=== PATIENT | female | born 1965 | race African-American/Black ===

== ENCOUNTER → 2017-09-24 | Outpatient (CLI) | payer BC ==
--- NOTE | 2017-09-28 09:15 | MM ---
Reason for exam: screening (asymptomatic). Last mammogram was performed 1 year and 3 months ago. History: Took hormonal contraceptives for 8 years beginning at age 17. Physical Findings: A clinical breast exam by your physician is recommended on an annual basis and results should be correlated with mammographic findings. MG Screening Mammo w CAD Bilateral CC and MLO view(s) were taken. Prior study comparison: June 09, 2016, bilateral MG screening mammo w CAD. October 30, 2013, bilateral digital screening mammo w/CAD. The breast tissue is heterogeneously dense. This may lower the sensitivity of mammography. No significant changes when compared with prior studies. ASSESSMENT: Negative, BI-RAD 1 RECOMMENDATION: Routine screening mammogram of both breasts in 1 year.
== END ==
LOC: RADMAMWWP 09:13
PROVIDERS: ATTEND Family Medicine
DX: Z12.31 Encounter for screening mammogram for malignant neoplasm of breast (principal)
CPT/HCPCS: 77067

== ENCOUNTER → 2018-08-11 | Outpatient (CLI) | payer BC ==
[2018-08-11 13:43] LABS: Basophils % (A) 0 %; Eosinophils # (A) 0.1 k/uL (0-0.7); Eosinophils % (A) 2 %; HCT 37.5 % (34.0-46.0); HGB 11.9 gm/dL (11.4-16.0); Lymphocytes # (A) 1.7 k/uL (1.0-4.8); Lymphocytes % (A) 19 %; MCH 28.3 pg (25.0-35.0); MCHC 31.7 g/dL (31.0-37.0); MCV 89.3 fL (80.0-100.0); Mean Platelet Volume 7.3; Monocytes # (A) 0.3 k/uL (0-1.0); Monocytes % (A) 3 %; Neutrophils # (A) 7.1 k/uL (1.3-7.7); Neutrophils % (A) 75 %; Platelet Count 283 k/uL (150-450); RBC 4.21 m/uL (3.80-5.40); RDW 14.3 % (11.5-15.5); WBC 9.4 k/uL (3.8-10.6)
== END | disposition home or self-care (01) ==
LOC: LABPAT 13:04
PROVIDERS: ATTEND Obstetrics & Gynecology
DX: Z01.812 Encounter for preprocedural laboratory examination (principal); N92.0 Excessive and frequent menstruation with regular cycle
CPT/HCPCS: 36415; 85025

== ENCOUNTER 2018-08-23 08:15 | Day surgery (SDC) | payer BC ==
[2018-08-22 11:03] VITALS: BMI 34.3
--- NOTE | 2018-08-22 15:11 | HP ---
HISTORY AND PHYSICAL This is a 53-year-old female who presents with long, heavy menses that are lasting 9 days monthly. The menses are regular, she has had previously a tubal ligation. Sonogram reveals multiple uterine fibroids, largest 4.4 cm. After thorough consultation, patient is electing to proceed with endometrial ablation. We have discussed vaginal hysterectomy as an option as well. PAST MEDICAL HISTORY: Significant for asthma, hypertension, hypothyroidism as well as a history of abnormal Pap smears. PAST SURGICAL HISTORY: Tubal ligation in the past. CURRENT MEDICATIONS: 1. Ibuprofen 800 mg as needed. 2. Levothyroxine 100 mcg daily. 3. Lisinopril 10 mg orally daily. ALLERGIES: Include LODINE and PENICILLIN, reaction unclear per patient's history. FAMILY HISTORY: Significant for hypertension, diabetes, and congestive heart failure. REPRODUCTIVE HISTORY: Significant for vaginal delivery in 1991. 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 PHYSICAL EXAM: This is a pleasant white female who is 5 foot 6 inches, 212 pounds, BMI 34, blood pressure 120/82. HEENT exam reveals good dentition, no thyromegaly, no cervical lymphadenopathy. Breasts are bilaterally symmetric to inspection with no skin dimpling, nipple discharge, axillary adenopathy or discernible lesions or masses. Abdomen is somewhat obese, no organoplenomegaly, no tenderness, active bowel sounds. The chest is clear to auscultation in all conner anteriorly and posteriorly. The cardiac exam reveals a regular rate and rhythm with no murmur, click, or rub. Extremities reveal no edema, good peripheral pulses, equal reflexes bilaterally. On pelvic exam, cervix is multiparous, uterus is nontender, 12 week size and irregular with small fibroids. Adnexa are negative bilaterally without tenderness or enlargement. Rectal exam reveals good sphincter tone, no hemorrhoids or defects. IMPRESSION: Small fibroid uterus, menorrhagia, previous tubal ligation. With impending menopause, patient is electing to proceed with hysteroscopy and NovaSure endometrial ablation as opposed to vaginal hysterectomy, although both options have been reviewed in detail. PLAN: We will therefore proceed with hysteroscopy, endometrial ablation at [facility] on 08/23/2018. The procedural pamphlet has been given to the patient and she has reviewed it thoroughly. I discussed with her the risk of anesthesia, the risk of perforation or damage to the bladder, bowel, ureters, blood vessels, the risk of the dysmenorrhea or issues postoperatively. All questions answered. The patient understands that this may fail secondary to the presence of small fibroids, at which time a vaginal hysterectomy would be her last option. Second opinion offered and declined. MMODL / IJN: [id number] /
[~2018-08-23 08:15] MED LIST: DEXAMETHASONE SOD PHOSPHATE 10 MG/ML 1 ML VIAL IV ONE; HYDROmorphone 0.5 MG/0.5 ML SYRINGE IVP PRN; LACTATED RINGERS 1,000 ML IV SCH; LIDOCAINE 1% 20 ML VIAL (10MG/ML) FOR IV START INTRADERMA PRN; MIDAZOLAM (PF) 2 MG/2 ML VIAL IV PRN; ONDANSETRON 4 MG/2 ML VIAL IVP ONE; Pre Op ABX Message 1 EACH MISC MISCELLANE ONE; SCOPOLAMINE 1.5MG/72HR PATCH TRANSDERM ONE
[2018-08-23] MEDS ORDERED: fentaNYL (PF) 50 MCG/ML 2 ML AMP ONE (09:10)
[2018-08-23] MEDS ORDERED: PROPOFOL 10 MG/ML 20 ML VIAL IV ONE (09:10)
[2018-08-23] MEDS ORDERED: LIDOCAINE 1% INJ 10MG/ML (20 ML MDV) ONE (09:10)
[2018-08-23] MEDS ORDERED: MIDAZOLAM 2 MG/2 ML VIAL ONE (09:10)
[2018-08-23] MEDS ORDERED: KETOROLAC 30 MG/ML 1 ML VIAL ONE (09:10)
--- NOTE | 2018-08-23 09:37 | P.OP ---
Date of Procedure: 08/23/18 Preoperative Diagnosis: Menorrhagia, dysmenorrhea, fibroid uterus, perimenopausal Postoperative Diagnosis: Same, essentially negative endometrial cavity Procedure(s) Performed: Hysteroscopy, NovaSure endometrial ablation Surgeon: Jolly Oneil Estimated Blood Loss (ml): 5 IV fluids (ml): 450 Urine output (ml): 100 Operative Findings: Essentially normal-appearing endometrial cavity Description of Procedure: Patient is brought to the operating suite where general anesthetic is administered without difficulty. She's placed in the dorsal lithotomy position. The appropriate timeout is performed to assure proper patient and procedural identification. Urine hCG is negative. Antibiotics are not deemed necessary. The cervix, vagina, perineum, and periurethral areas are all prepped and draped in usual sterile fashion. Examination under anesthesia reveals an anteverted uterus approximately 12 weeks size, irregular with fibroids, negative adnexa bilaterally. Bladder is drained for approximate 100 mL of clear yellow urine. Weighted speculum was placed into the vagina and the anterior lip of the cervix is grasped with a double-tooth tenaculum. Uterus sounds to a depth of 8.5 cm in the anteverted position. Cervix is gently and systematically dilated using Hanks dilators. Hysteroscope was placed and the cavity is distended with sterile saline. Inspection of cavity reveals no fibroids, polyps, septa or defects. Hysteroscope was removed. NovaSure wand is placed and seated properly. Uterine length of 6.0 cm, width of 3.6 cm is calibrated. Machine is properly enabled. For 45 seconds with a power of 119 W the procedure is carried out. When the machine shut off spontaneously, the wand is retracted and removed. Hysteroscope was once again placed and the cavity is noted to be freely blanched. In inspecting the anterior lip of the cervix there was a small defect from the double-tooth tenaculum. A 2-0 Vicryl suture with a figure-of- eight technique is placed over the defect for excellent hemostasis. All sponge needle and enhancement counts are correct at the end of the procedure. Patient is brought back to recovery room in very good condition with able vital signs including a pulse of 57, blood pressure 132/81, 98% O2 saturation. Toradol is given prior to leaving the operative suite. Patient will follow-up with me in the office in 2 weeks.
[2018-08-23 09:55] VITALS: TEMP 97.1
[2018-08-23 10:34] VITALS: RESP 16
[2018-08-23 11:38] VITALS: BP 106/71; PULSE 57
[2018-08-23] MEDS ORDERED: IBUPROFEN 200 MG TAB PO ONE (12:01)
== END 2018-08-23 12:15 | disposition home or self-care (01) ==
LOC: OR 08:15
PROVIDERS: ATTEND Obstetrics & Gynecology
DX: N92.4 Excessive bleeding in the premenopausal period (principal); N94.6 Dysmenorrhea, unspecified; D25.9 Leiomyoma of uterus, unspecified; I10 Essential (primary) hypertension; E03.9 Hypothyroidism, unspecified; J45.909 Unspecified asthma, uncomplicated; Z79.890 Hormone replacement therapy; Z79.899 Other long term (current) drug therapy; Z88.0 Allergy status to penicillin; Z88.8 Allergy status to other drugs, medicaments and biological substances; Z87.891 Personal history of nicotine dependence
CPT/HCPCS: 81025; 58563; J2250; J1100; J2405; J2001; J3010; J1885; J2704

== ENCOUNTER → 2024-01-26 | Outpatient (CLI) | payer BC, MEDICARE ==
--- NOTE | 2024-01-31 09:24 | MM ---
Reason for Exam: Screening (asymptomatic). Last mammogram was performed 6 year(s) and 4 month(s) ago. Patient History: Menarche at age 10. First Full-Term at age 27. Left ovary removed at age 56. Right ovary removed at age 56. Hysterectomy at age 56. Hormonal Contraceptives for 8 years from age 17 until age 25. Risk Values: Denice 5 year model risk: 1.4%. NCI Lifetime model risk: 7.7%. Prior Study Comparison: 10/30/2013 Bilateral Screening Mammogram, [facility]. 06/09/2016 Bilateral Screening Mammogram, [facility]. 09/24/2017 Bilateral Screening Mammogram, [facility]. Tissue Density: The breasts are heterogeneously dense, which may obscure small masses. Findings: Analyzed By CAD. Right breast: There is no suspicious group of microcalcifications or new suspicious mass. Left breast: There is no suspicious group of microcalcifications or new suspicious mass. Overall Assessment: Negative, BI-RAD 1 Management: Screening Mammogram of both breasts in [address] [facility] will attempt to contact patient to return for supplemental views and ultrasound if indicated. Patient should continue monthly self-breast exams. A clinical breast exam by your physician is recommended on an annual basis. This exam should not preclude additional follow-up of suspicious palpable abnormalities. Note on Denice scores and lifetime risk: 1. A Denice score greater than 3% is considered moderate risk. If this is the case, consider specialist referral to assess eligibility for a risk reducing agent. 2. If overall lifetime risk for the development of breast cancer is 20% or higher, the patient may qualify for future screening with alternating mammogram and breast MRI. Electronically signed and approved by: Nirav Chino DO
== END | disposition home or self-care (01) ==
LOC: RADMAMWWP 10:27
PROVIDERS: ATTEND Family Medicine
DX: Z12.31 Encounter for screening mammogram for malignant neoplasm of breast (principal)
CPT/HCPCS: 77067